=== PATIENT | male | born 1960 | race Caucasian/White ===

== ENCOUNTER 2017-07-04 05:58 | Day surgery (SDC) | payer OTHER ==
[2017-07-03 11:16] VITALS: BMI 25.0
--- NOTE | 2017-07-03 23:34 | HP ---
DATE OF ADMISSION: 07/04/2017 HISTORY OF PRESENT ILLNESS: This is a 56-year-old male with longstanding acid reflux of mo re than 20 years ago. The patient takes Premarin twice a day. Symptoms were controlled. He suffere d heartburn. No history of difficulty swallowing. No history of abdominal pain. The patient has avila d acid reflux for so many years, but he never had an EGD. The patient comes for EGD because of longs tanding acid reflux. PAST MEDICAL HISTORY: 1. Chronic acid reflux. 2. Colon polyp. 3. Depression. 4. Insomnia. 5. Essential tremor. 6. Prostate hypertrophy. ALLERGIES: PENICILLIN. PHYSICAL EXAMINATION: VITAL SIGNS: Pulse is 70, blood pressure 130/70. HEENT: Conjunctivae clear. CARDIOVASCULAR: First and second heart sounds normal. LUNGS: Clear to auscultation. ABDOMEN: Soft to palpate. No organomegaly. No tenderness. No masses. EXTREMITIES: Reveal no edema. ADMITTING DIAGNOSIS: A 56-year-old male with longstanding acid reflux. PLAN: EGD.
--- NOTE | 2017-07-04 10:12 | OP ---
DATE OF PROCEDURE: 07/04/2017 SURGEON: Anthony Brito M.D. OPERATIVE PROCEDURE: Esophagogastroduodenoscopy with biopsy. PREOPERATIVE DIAGNOSIS: A 56-year-old male with longstanding acid reflux. The patient has been on famotidine 20 mg once or twice a day over the last several years. The patient was referred to me by Dr. Umaña for an EGD because of longstanding acid reflux. POSTOPERATIVE DIAGNOSES: 1. Antral gastritis. 2. Irregular Z-line. The esophageal mucosa actually appears normal, without any erosions or any eso phagitis. PROCEDURE IN DETAIL: The patient was placed on his left lateral position and was given sedation by A nesthesia Department. A [employer] video gastroscope under direct vision was passed down the oropharynx, past the gastroesophageal junction, into the stomach and subsequently into the descending duodenum. Although the patient has had acid reflux for many years, on endoscopy the esophageal mucosa appeared normal. The Z-line was slightly irregular. Biopsies of the distal esophagus. He has no hiatus her [place]. Retroflexion failed to show any lesions in the fundus or cardia. The gastric body, no patholog y seen. The gastric antrum shows linear erythematous streaks indicative of gastritis. Biopsies were obtained from the gastric antrum and gastric body. The duodenal bulb and descending duodenum, no pa thology. The stomach was decompressed and the scope removed. DISCHARGE PLANNING: This is a 56-year-old male with longstanding acid reflux here for an E GD. He underwent EGD with biopsy. DISCHARGE RECOMMENDATIONS: 1. Continue famotidine as before. 2. The patient advised to come back to me early next week for a followup.
[2017-07-04] MEDS ORDERED: Propofol 200 MG/20 ML VIAL ONE (11:50)
== END 2017-07-04 09:00 | disposition home or self-care (01) ==
LOC: SDC 05:58
PROVIDERS: ATTEND Internal Medicine Gastroenterology
PROC: 0DB68ZX Excision of Stomach, Via Natural or Artificial Opening Endoscopic, Diagnostic (ICD-10-PCS; principal; 2017-07-04)
DX: K21.0 Gastro-esophageal reflux disease with esophagitis (principal); K29.70 Gastritis, unspecified, without bleeding; G47.00 Insomnia, unspecified; G25.0 Essential tremor; F32.9 Major depressive disorder, single episode, unspecified; Z88.0 Allergy status to penicillin; Z87.19 Personal history of other diseases of the digestive system; Z98.890 Other specified postprocedural states
CPT/HCPCS: 88305; 88312; 88313; J2704